=== PATIENT | female | born 1970 | race Two or more races ===

== ENCOUNTER 2022-05-13 09:45 | Inpatient (IN) | payer OTHER ==
[~2022-05-13] VITALS: Ht 172.7 cm; Wt 83.9 kg
[2022-05-13] MEDS ORDERED: METHOT PO (12:09)
[2022-05-13] MEDS ORDERED: FOLIC AC PO (12:10)
[2022-05-13] MEDS ORDERED: TREXALL7.5 MG (12:12)
== END 2022-05-17 13:53 | disposition home or self-care (01) | DRG 743 ==
LOC: OB/GYN 05-16 07:07 → O/R 05-16 07:07 → SURG 05-16 09:45 → OB/GYN 05-16 15:39 → SURG 05-16 23:30 → OB/GYN 05-17 13:53
PROVIDERS: ADMIT Obstetrics & Gynecology Gynecologic Oncology; ATTEND Obstetrics & Gynecology Gynecologic Oncology
PROC: 0UT74ZZ Resection of Bilateral Fallopian Tubes, Percutaneous Endoscopic Approach (ICD-10-PCS; 2022-05-16)
PROC: 0UT04ZZ Resection of Right Ovary, Percutaneous Endoscopic Approach (ICD-10-PCS; 2022-05-16)
PROC: 07BC4ZZ Excision of Pelvis Lymphatic, Percutaneous Endoscopic Approach (ICD-10-PCS; 2022-05-16)
PROC: 0UT94ZZ Resection of Uterus, Percutaneous Endoscopic Approach (ICD-10-PCS; principal; 2022-05-16 23:30)
DX: D25.1 Intramural leiomyoma of uterus (principal); D27.0 Benign neoplasm of right ovary; N80.03 Adenomyosis of the uterus; N72 Inflammatory disease of cervix uteri; Z20.822 Contact with and (suspected) exposure to COVID-19